=== PATIENT | female | born 1990 | race Caucasian/White ===

== ENCOUNTER 2017-05-17 10:08 | Emergency (ER) | payer OTHER ==
[~2017-05-17] VITALS: Ht 162.6 cm; Wt 56.0 kg
[2017-05-17 10:10] VITALS: BP 138/86; PULSE 98; RESP 16; TEMP 98.6; O2SAT 99
[2017-05-17] MEDS ORDERED: AUGM500T7 PO (10:20)
--- NOTE | 2017-05-17 10:30 | PD ---
HPI Chief Complaint: Bite or Sting Time Seen by Provider: 10:16 Travel History International Travel<30 days: No Contact w/Intl Traveler<30days: No Traveled to known affect area: No History of Present Illness HPI This is a 26-year-old female who yesterday was bit on the face by a dog who presents to the emergency department for a wound check. She was seen at [facility] last evening and she had repair of her laceration and was started on Augmentin. Patient has noticed a little bit of clear drainage from the wound. She was told to come to [place] for evaluation by a plastic surgeon today for recheck. [facility] Past Medical History Medical History: Denies Significant Hx Diminished Hearing: No Tetanus Vaccination: < 5 Years ?: Not Past Surgical History Surgical History: No Previous Surgery Social History Alcohol Use: No Tobacco Use: No Substance Use: No Allergies-Medications (Allergen,Severity, Reaction): Coded Allergies: hydrocodone (Verified Allergy, Unknown, 05/17/17) Reported Meds & Prescriptions Reported Meds & Active Scripts Active Reported Augmentin (Amoxicillin-Clavulanate) 500-125 mg Tab 500 Mg PO BID Review of Systems General / Constitutional: No: Fever, Chills Respiratory: No: Shortness of Breath Physical Exam Narrative GENERAL: Well-appearing, no acute distress, nontoxic SKIN: 3 cm laceration along the right nose and a small 2 cm laceration along the right chin which are sutured. There is minimal edema but no erythema, warmth or purulent discharge from the wound. HEAD: Atraumatic. Normocephalic. ENT: No nasal bleeding or discharge. Moist mucous membranes MUSCULOSKELETAL: No obvious deformities. NEUROLOGICAL: Awake and alert. No obvious cranial nerve deficits. Motor grossly within normal limits. Normal speech. PSYCHIATRIC: Appropriate mood and affect; insight and judgment normal. Data Data Last Documented VS Vital Signs Date Time Temp Pulse Resp B/P (MAP) Pulse Ox O2 Delivery O2 Flow Rate FiO2 05/17/17 10:10 98.6 98 16 138/86 (103) 99 MDM Medical Decision Making Medical Screen Exam Complete: Yes Emergency Medical Condition: Yes Differential Diagnosis Dog bite, wound infection Narrative Course This is a 26-year-old female who presents to the emergency department having sustained a dog bite to her face last evening. She had repair performed at an outside hospital. She is here for a wound recheck and was hopeful to see plastic surgery. I explained to her that this is not an indication to call a plastic surgeon to the emergency department. The wound appears to be healing well and I do not see any signs of acute infection although I did ask her to closely watch her wound. She will be given a referral for outpatient plastic surgery and was told to have her sutures reassessed and likely removed in 5 days Diagnosis Primary Impression: Visit for wound check Referrals: Tanner Heath MD Patient Instructions: General Instructions Additional Instructions: If you develop redness, swelling, pus or drainage from your wound return to the emergency room. Wash your wound with warm soap and water twice daily. Apply topical antibiotic ointment and complete your oral antibiotics. Follow-up with a plastic surgeon as an outpatient. Med/Other Pt SpecificInfo: No Change to Meds Disposition: 01 DISCHARGE HOME Condition: Stable Keisha Aranda MD May 17, 2017 10:30
== END 2017-05-17 10:58 | disposition home or self-care (01) ==
LOC: NEPD 10:08
DX: Z51.89 Encounter for other specified aftercare (principal)
CPT/HCPCS: 99281